=== PATIENT | male | born 1990 | race Two or more races ===

== ENCOUNTER 2017-07-20 06:59 | Emergency (ER) | payer SELFPAY ==
[~2017-07-20] VITALS: Ht 170.2 cm; Wt 74.8 kg
[2017-07-20 07:39] VITALS: BP 139/73
== END 2017-07-20 07:40 | disposition other institution (70) ==
LOC: ED 06:59
DX: S00.91XA Abrasion of unspecified part of head, initial encounter (principal); R07.9 Chest pain, unspecified; V49.9XXA Car occupant (driver) (passenger) injured in unspecified traffic accident, initial encounter; Y93.89 Activity, other specified; Y92.89 Other specified places as the place of occurrence of the external cause; Y99.8 Other external cause status